=== PATIENT | female | born 1960 | race Caucasian/White ===

== ENCOUNTER → 2016-06-08 | Outpatient (CLI) | payer MEDICARE ==
[2016-06-08 13:28] LABS: BUN/CREATININE RATIO 20 (0-10)
== END ==
PROVIDERS: Family Medicine
DX: E11.65 Type 2 diabetes mellitus with hyperglycemia (principal)
CPT/HCPCS: 36415; 80053; 82043; 82570; 83036

== ENCOUNTER → 2020-04-27 | Outpatient (CLI) | payer MEDICARE ==
[~2020-04-27] MED LIST: AMLODIPINE BESY10 MG PO; ASPIRIN EC81 MG PO; COLACE 100MG C100 MG PO; CYCLOBENZAPRINE5 MG PO; FLONASE 0.05% N16 GM; ISOSORBIDE MON120 MG PO; ISOSORBIDE PO; LEVEMIR100 UNIT/1 SQ; LIPITOR40 MG PO; LISINOPRIL40 MG PO; METOPROLOL TART50 MG PO; MOBIC15 MG PO; NITROSTAT0.4 MG SL; NOVOLOG100 UNIT/1 SQ; PLAVIX 75 MG TA75 MG PO; PROTONIX40 MG PO; RANITIDINE HCL150 MG PO; SIMVASTATIN20 MG PO; SPIRONOLACTONE1 EACH PO; TIZANIDINE HCL2 MG PO; TRULICITY1.5 MG/0.5 SQ; VIT D3 PO; ZYRTEC10 MG PO; [UNRECOGNIZED DRUG - OTHER] PO
== END ==
LOC: MAMO 08:10
DX: Z12.31 Encounter for screening mammogram for malignant neoplasm of breast (principal)
CPT/HCPCS: 77063; 77067

== ENCOUNTER 2020-05-22 10:21 | Emergency (ER) | payer MEDICARE ==
[~2020-05-22 10:21] MED LIST changes: -CYCLOBENZAPRINE5 MG PO; -MOBIC15 MG PO
[2020-05-22] MEDS ORDERED: CYCLOBENZAPRINE5 MG PO (12:45)
[2020-05-22] MEDS ORDERED: MOBIC15 MG PO (12:45)
== END 2020-05-22 13:06 | disposition home or self-care (01) ==
LOC: ER1 10:21
DX: S39.012A Strain of muscle, fascia and tendon of lower back, initial encounter (principal); M54.41 Lumbago with sciatica, right side; I10 Essential (primary) hypertension; E11.9 Type 2 diabetes mellitus without complications; Z88.2 Allergy status to sulfonamides; Z86.73 Personal history of transient ischemic attack (TIA), and cerebral infarction without residual deficits; Z90.89 Acquired absence of other organs
CPT/HCPCS: 72100; 73502; 99283

== ENCOUNTER → 2020-10-11 | Outpatient (CLI) | payer MEDICARE ==
[~2020-10-11] MED LIST changes: +CYCLOBENZAPRINE5 MG PO; +MOBIC15 MG PO
[2020-10-11 12:57] LABS: HEMOGLOBIN 13.6 gm/dl (12.3-15.3); RED BLOOD COUNT 4.44 M/UL (4.00-5.10); WHITE BLOOD COUNT 7.7 K/UL (4.5-11.0)
[2020-10-12 10:14] LABS: CREATININE, URINE 97.5 mg/dL (Not Estab.)
== END ==
LOC: LAB 09:03
PROVIDERS: Family Medicine
DX: R80.9 Proteinuria, unspecified (principal); E55.9 Vitamin D deficiency, unspecified; E78.2 Mixed hyperlipidemia; E11.9 Type 2 diabetes mellitus without complications; Z79.4 Long term (current) use of insulin
CPT/HCPCS: 36415; 80053; 80061; 82043; 82570; 84156; 85027

== ENCOUNTER → 2020-12-14 | Outpatient (CLI) | payer MEDICARE ==
[2020-12-15 11:14] LABS: CREATININE, URINE 100.4 mg/dL (Not Estab.)
== END ==
LOC: LAB 09:07
PROVIDERS: Internal Medicine Nephrology
DX: N18.32 Chronic kidney disease, stage 3b (principal); Z87.448 Personal history of other diseases of urinary system; R80.9 Proteinuria, unspecified
CPT/HCPCS: 36415; 80048; 81001; 82043; 82570

== ENCOUNTER → 2021-05-05 | Outpatient (CLI) | payer MEDICARE | LOC: MAMO 14:14 | DX: Z12.31 Encounter for screening mammogram for malignant neoplasm of breast (principal) | CPT/HCPCS: 77063; 77067 ==

== ENCOUNTER → 2021-08-22 | Outpatient (CLI) | payer MEDICARE | LOC: HEART 5 07:48 | DX: R07.9 Chest pain, unspecified (principal); R00.2 Palpitations; Z00.00 Encounter for general adult medical examination without abnormal findings; Z13.820 Encounter for screening for osteoporosis; Z78.0 Asymptomatic menopausal state; I51.7 Cardiomegaly | CPT/HCPCS: 77080; 78452; 93306; A9502; J2785 ==

== ENCOUNTER → 2021-09-22 | Outpatient (CLI) | payer MEDICARE ==
[2021-09-22 10:57] LABS: HEMOGLOBIN 13.9 gm/dl (12.3-15.3); RED BLOOD COUNT 4.51 M/UL (4.00-5.10); WHITE BLOOD COUNT 9.3 K/UL (4.5-11.0)
== END ==
LOC: LAB 10:23
PROVIDERS: Family Medicine
DX: E78.2 Mixed hyperlipidemia (principal); E11.9 Type 2 diabetes mellitus without complications; E55.9 Vitamin D deficiency, unspecified; Z79.899 Other long term (current) drug therapy; Z79.4 Long term (current) use of insulin
CPT/HCPCS: 36415; 80053; 80061; 82570; 82607; 83735; 84156; 85027